=== PATIENT | female | born 1975 | race Caucasian/White ===

== ENCOUNTER 2022-09-03 08:24 | Outpatient (CLI) | payer OTHER, SELFPAY | END 2022-09-03 08:25 | disposition home or self-care (01) | PROVIDERS: PCP Family Medicine; Visit Provider Nurse Practitioner Family | DX: Z00.00 Encounter for general adult medical examination without abnormal findings (principal); I10 Essential (primary) hypertension; F41.1 Generalized anxiety disorder; Z13.6 Encounter for screening for cardiovascular disorders | CPT/HCPCS: 80053; 80061; 84443 ==

== ENCOUNTER 2022-09-17 16:05 | Outpatient (CLI) | payer OTHER, SELFPAY ==
--- NOTE | 2022-09-17 16:15 | CRLHL7_ITS ---
For Patients: As a result of the Century Cures Act, medical imaging exams and procedure reports are released immediately into your electronic medical record. You may view this report before your referring provider. If you have questions, please contact your health care provider. BILATERAL SCREENING MAMMOGRAM WITH COMPUTER-AIDED DETECTION AND TOMOSYNTHESIS TECHNIQUE: CC and MLO views were obtained. These mammographic images have been obtained using full-field digital technique. These mammographic images were interpreted with the benefit of computer-aided detection. Breast tomosynthesis was used in this interpretation. COMPARISON FILM: 07/26/21, 07/18/20, 04/13/19. FINDINGS: The breasts are heterogeneously dense, which may obscure small masses. IMPRESSION: There is no radiographic evidence for malignancy. ASSESSMENT: BI-RADS Category 1: Negative RECOMMENDATION: Routine screening mammogram in 1 year. A lay language report of this examination will be provided to the patient. WILLIS MAGAÑA M.D. Diagnostic Radiologist [email or web address] Transcribed: 09/18/2022, 2:[address]/Dictated by: Willis Magaña MD @ 09/18/2022 10:01:00 AM (Electronically Signed)
== END 2022-09-17 16:06 | disposition home or self-care (01) ==
LOC: MAMMO 16:06
PROVIDERS: PCP Family Medicine; Visit Provider Nurse Practitioner Family
DX: Z12.31 Encounter for screening mammogram for malignant neoplasm of breast (principal); R92.2 Inconclusive mammogram
CPT/HCPCS: 77063; 77067

== ENCOUNTER 2023-06-30 10:15 | Emergency (ER) | payer BC, SELFPAY ==
[2023-06-30 10:17] VITALS: BP 174/84; PULSE 122; RESP 16; TEMP 36.8; O2SAT 100; BMI 24.1
--- NOTE | 2023-06-30 10:35 | XR_ITS ---
Patient: JEREMY BHAGAT Facility:?[facility] Patient ID:?[id number] Site Patient ID:?[id number]. Site :?[id number] Study:?XRay-Chest 2 VIEW-06/30/2023 11:24:49 AM Ordering Physician:?DR. BREWER Final Report: INDICATION: Left upper chest pain. TECHNIQUE: Chest 2 views. COMPARISON: None. FINDINGS: Cardiovascular and mediastinum: Heart size and vasculature are normal in caliber and appearance. Lungs and pleural spaces: Lungs are clear. No sign of infiltrate or mass. No sign of pleural effusion. No pneumothorax. Bones and soft tissues: No significant findings. IMPRESSION: No acute or significant findings. Dictated by Rudy Dey MD @ 06/30/2023 11:39:24 AM Signed by:?Rudy Dey MD @06/30/2023 11:39:24 AM (Electronic Signature)
--- NOTE | 2023-06-30 10:36 | ED_ITS ---
HPI - Chest Pain General Date Seen: 06/30/23 Chief Complaint: Chest Pain Stated Complaint: chest pain Time Seen by Provider: 06/30/23 10:17 Source: patient Mode of arrival: ambulatory Limitations: no limitations History of Present Illness HPI narrative: Patient is a 47-year-old female presenting for left upper chest pain. Symptoms have been going on for the past 4 days. States pain is worse with deep breaths or movement of her left arm. Does not remember any recent heavy lifting or exercising because of cause this pain. No history of injuries to this area. States the pain wraps around her chest to her back. Had similar symptoms several years ago lower in her chest after she gave but they went away with steroids. No history of heart disease. No history of blood clots. Has been taking ibuprofen for pain which has been improving the symptoms. Does note her left upper chest is tender when she presses on it. Denies fevers, chills, headache, vision changes, shortness of breath, weakness, numbness, abdominal pain. No other concerns at this time Related Data Home Medications Medication Instructions Recorded Confirmed cetirizine 10 mg tablet 10 mg PO QDAY PRN 09/03/22 06/30/23 ibuprofen 200 mg tablet 600 mg PO QHS PRN 09/03/22 06/30/23 magnesium citrate 100 mg capsule 400 mg PO QDAY 09/03/22 06/30/23 multivitamin 1 tab PO QDAY 09/03/22 06/30/23 Previous Rx's Medication Instructions Recorded buspirone 10 mg tablet 10 mg PO BID #180 tabs 09/03/22 lorazepam 0.5 mg tablet (Ativan) 0.5 mg PO QHS PRN anxiety #30 tabs 09/03/22 Allergies Allergy/AdvReac Type Severity Reaction Status Date / Time No Known Drug Allergies Allergy Verified 06/30/23 10:23 Review of Systems Status of ROS Reports: 10 or more systems reviewed and unremarkable except as noted in History and below [facility] Medical History Perioral dermatitis ?L71.0 - Perioral dermatitis (ICD-10) 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) Surgical History Status post arthroscopy of right knee ?Z98.890 - Other specified postprocedural states (ICD-10) History of exploratory laparotomy ?Z98.890 - Other specified postprocedural states (ICD-10) Social History Smoking Status: Never smoker Do you use any of these nicotine containing products: None Second hand tobacco smoke exposure: No How often do you have a drink containing alcohol: never How often do you have six or more drinks on one occasion: Never AUDIT-C Alcohol total score: 0 Non-prescribed substance use: denies use Little interest or pleasure in doing things: several days Feeling down, depressed, or hopeless: several days service: No Exam Narrative Exam Narrative: Const: Well-nourished, Well-developed, in mild distress Eyes: PERRL, no conjunctival injection, and symmetrical lids HENT: Atraumatic external nose and ears. Moist mucous membranes. Neck: Symmetric, trachea midline, No thyromegaly. CVS: RRR, No murmurs or gallops. Peripheral pulses 2+ and equal in all extremities RESP: Unlabored respiratory effort. Clear to auscultation bilaterally. GI: Nontender/Nondistended, No rebound or guarding. MSK:Extremities w/o deformity, Normal Active ROM, tenderness palpation left upper chest Skin: Warm, Dry. No rashes or lesions. Neuro: Normal Muscle tone, No focal neurological deficits. Psych: Awake, Alert, & Oriented x3. Appropriate mood and affect. Const Vital Signs, click to edit/add: Vital Signs - 24 hr 06/30/23 10:17 Temperature 98.3 F Pulse Rate [Pulse Oximeter] 122 H Respiratory Rate 16 Blood Pressure [Right Upper Arm] 174/84 H Pulse Oximetry 100 Oxygen Delivery Method Room Air Course Vital Signs Vital signs: Initial Vital Signs Temperature 98.3 F 06/30/23 10:17 Temperature Source Temporal Artery Scan 06/30/23 10:17 Pulse Rate 122 H 06/30/23 10:17 Respiratory Rate 16 06/30/23 10:17 Blood Pressure 174/84 H 06/30/23 10:17 Blood Pressure Mean 114 H 06/30/23 10:17 Blood Pressure Position Sitting 06/30/23 10:17 Pulse Oximetry 100 06/30/23 10:17 Oxygen Delivery Method Room Air 06/30/23 10:17 Vital Signs Temperature 98.3 F 06/30/23 10:17 Pulse Rate 122 H 06/30/23 10:17 Respiratory Rate 16 06/30/23 10:17 Blood Pressure 174/84 H 06/30/23 10:17 Pulse Oximetry 100 06/30/23 10:17 Oxygen Delivery Method Room Air 06/30/23 10:17 Temperature 98.3 F 06/30/23 10:17 Pulse Rate 122 H 06/30/23 10:17 Respiratory Rate 16 06/30/23 10:17 Blood Pressure 174/84 H 06/30/23 10:17 Pulse Oximetry 100 06/30/23 10:17 Oxygen Delivery Method Room Air 06/30/23 10:17 Medications Administered Medications: Discontinued Medications Generic Name Dose Route Start Last Admin Trade Name Freq PRN Reason Stop Dose Admin Ketorolac Tromethamine 15 mg 06/30/23 10:34 06/30/23 11:00 Ketorolac 15 Mg/Ml Inj IVP 06/30/23 10:35 15 mg ONCE ONE Administration MDM - Chest Pain MDM Narrative Medical decision making narrative: Patient is a 47-year-old female presenting for chest pain. Pain is in the left upper chest it is reproducible with palpation. Seems most likely to be musculoskeletal in nature but she is tachycardic currently and cannot be perked out. Since she is having pain with deep breaths I will order a D-dimer to rule out a PE. Will also order chest x-ray for signs of pneumonia and pneumothorax. EKG and troponins look for signs of ACS. Also ordered CBC and BMP. Toradol given for pain. Patient's pain improved significantly with the Toradol. Chest x-ray reviewed by myself and the radiologist shows no concerning findings. Lab work shows no concerning abnormalities. Troponin within normal limits. EKG shows no concerning findings. Considering this pain has been gone for several days I not believe is necessary to repeat the troponin. She is otherwise doing well and can be discharged home. She is agreeable to this plan. Lab Data Labs: Lab Results 06/30/23 Range/Units 11:02 WBC 7.17 (4.50-11.00) K/uL RBC 3.98 L (4.00-5.20) m/uL Hgb 13.0 (12.0-16.0) gm/dL Hct 38.7 (33.0-51.0) % MCV 97 (80-100) fL MCH 33 (26-34) pg MCHC 34 (32-36) gm/dL RDW Coeff of Vishal 12.1 (11.5-15.5) % Plt Count 227 (140-440) K/uL Neut % (Auto) 67.9 (42.0-72.0) % Lymph % (Auto) 25.0 (20-44) % [place] % (Auto) 5.6 (0.0-11.0) % Eos % (Auto) 1.0 (0.0-7.0) % Baso % (Auto) 0.4 (0.0-3.0) % Neut # (Auto) 4.87 (1.7-7.0) K/uL Lymph # (Auto) 1.79 (0.90-2.90) K/uL [place] # (Auto) 0.40 (0.00-0.90) K/UL Eos # (Auto) 0.07 (0.00-0.50) K/uL Baso # (Auto) 0.03 (0.00-0.30) K/uL Abs Immat Gran (auto) 0.01 (0.00-0.30) K/uL Imm/Tot Granulo (auto) 0.1 % D-Dimer Quant (PE/DVT) < 0.27 (0.00-0.50) ug/ml Sodium 134 L (135-149) mmol/L Potassium 3.6 (3.6-5.1) mmol/L Chloride 103 (96-114) mmol/L Carbon Dioxide 22 (20-32) mmol/L Anion Gap 9 (7-15) mEq/L BUN 18 (5-24) mg/dL Creatinine 0.5 (0.5-1.5) mg/dL Estimated Creat Clear 127.85 Estimated GFR 118 ml/min Glucose 171 H (60-115) mg/dL Calcium 9.3 (8.4-10.6) mg/dL Troponin I < 0.01 L (0.01-0.04) ng/mL SARS-CoV-2 (PCR) Negative SARS-CoV-2 (Negative) Influenza Type A (PCR) Negative PCR FLU A (Negative) Influenza Type B (PCR) Negative PCR FLU B (Negative) Imaging Data Chest x-ray: Radiologist's impression: No acute or significant findings. Dictated by Rudy Dey MD @ 06/30/2023 11:39:24 AM ECG Data Attestation: I personally reviewed and interpreted this ECG as follows: Prior ECG tracings: not available for review Interpretation: Normal sinus rhythm with a rate of 81 beats per minute, normal intervals, normal axis, no ST or T-wave abnormalities Discharge Plan Discharge Clinical Impression: Anterior chest wall pain Patient Disposition: Home, Self-Care Condition: Improved Instructions: Chest Wall Pain (ED) Additional Instructions: Your symptoms appear to be some from musculoskeletal pain of the chest. Take Tylenol and ibuprofen for pain. Pain should improve the next week. Return for new worsening symptoms. Prescriptions: No Action ibuprofen 200 mg tablet 600 mg PO QHS PRN multivitamin Tablet 1 tab PO QDAY magnesium citrate 100 mg capsule 400 mg PO QDAY cetirizine 10 mg tablet 10 mg PO QDAY PRN buspirone 10 mg tablet 10 mg PO BID Qty: 180 3RF lorazepam [Ativan] 0.5 mg tablet 0.5 mg PO QHS PRN (Reason: anxiety) Qty: 30 0RF Follow Up/Referrals: Todd Apple MD [Primary Care Provider] - Stand Alone Forms: [facility] Info Instructions
[2023-06-30] MEDS: KETOROLAC 15 MG/ML inj IVP (11:00)
[2023-06-30 11:16] LABS: Basophils Absolute Auto 0.03 K/uL (0.00-0.30); Basophils Percent Auto 0.4 % (0.0-3.0); Eosinophils Absolute Auto 0.07 K/uL (0.00-0.50); Hematocrit 38.7 % (33.0-51.0); Immature Granulocytes Abs Auto 0.01 K/uL (0.00-0.30); Immature Granulocytes Pct Auto 0.1 %; Lymphocytes Absolute Auto 1.79 K/uL (0.90-2.90); Mean Corpuscular HGB Conc 34 gm/dL (32-36); Mean Corpuscular Hemoglobin 33 pg (26-34); Mean Corpuscular Volume 97 fL (80-100); Monocytes Percent Auto 5.6 % (0.0-11.0); Neutrophils Absolute Auto 4.87 K/uL (1.7-7.0); Neutrophils Percent Auto 67.9 % (42.0-72.0); Platelet Count* 227 K/uL (140-440); RDW Coefficient of Variation % 12.1 % (11.5-15.5); Red Blood Count 3.98 m/uL (4.00-5.20); White Blood Count* 7.17 K/uL (4.50-11.00)
[2023-06-30 11:22] LABS: Chloride* 103 mmol/L (96-114)
[2023-06-30 11:23] LABS: Potassium* 3.6 mmol/L (3.6-5.1); Sodium* 134 mmol/L (135-149)
[2023-06-30 11:25] LABS: Creatinine* 0.5 mg/dL (0.5-1.5); Est. Creatinine Clearance* 127.85; Estimated Glomerular Filt Rate 118 ml/min
[2023-06-30 11:26] LABS: Anion Gap 9 mEq/L (7-15); Blood Urea Nitrogen* 18 mg/dL (5-24); Calcium* 9.3 mg/dL (8.4-10.6); Carbon Dioxide* 22 mmol/L (20-32); Glucose* 171 mg/dL (60-115)
[2023-06-30 11:34] LABS: Slide Review Reflex No
[2023-06-30 11:38] LABS: Troponin I* < 0.01 ng/mL (0.01-0.04)
[2023-06-30 11:46] LABS: PCR FLU A Negative PCR FLU A (Negative); PCR FLU B Negative PCR FLU B (Negative); SARS PCR* Negative SARS-CoV-2 (Negative)
[2023-06-30 12:36] LABS: D Dimer Quantitative* < 0.27 ug/ml (0.00-0.50)
== END 2023-06-30 12:52 | disposition home or self-care (01) ==
PROVIDERS: Emergency Provider Student in an Organized Health Care Education/Training Program; PCP Family Medicine
DX: R07.89 Other chest pain (principal)
CPT/HCPCS: 36415; 71046; 80048; 84484; 85025; 85379; 87631; 93005; 96374; 99283; 99284; 99285; J1885

== ENCOUNTER 2023-10-30 10:54 | Outpatient (CLI) | payer BC, SELFPAY | END 2023-10-30 10:55 | disposition home or self-care (01) | PROVIDERS: PCP Family Medicine; Visit Provider Nurse Practitioner Family | DX: E78.5 Hyperlipidemia, unspecified (principal); I10 Essential (primary) hypertension | CPT/HCPCS: 80053; 80061 ==

== ENCOUNTER 2023-11-21 12:42 | Outpatient (CLI) | payer BC, SELFPAY ==
--- NOTE | 2023-11-21 13:00 | CRLHL7_ITS ---
For Patients: As a result of the Century Cures Act, medical imaging exams and procedure reports are released immediately into your electronic medical record. You may view this report before your referring provider. If you have questions, please contact your health care provider. BILATERAL SCREENING MAMMOGRAM WITH COMPUTER-AIDED DETECTION AND TOMOSYNTHESIS TECHNIQUE: CC and MLO views were obtained. These mammographic images have been obtained using full-field digital technique. These mammographic images were interpreted with the benefit of computer-aided detection. Breast Tomosynthesis was used in this interpretation. COMPARISON FILM: 09/17/22, 07/26/21, 07/18/20. FINDINGS: There are scattered areas of fibroglandular density IMPRESSION: There is no radiographic evidence for malignancy. ASSESSMENT: BI-RADS Category 1: Negative RECOMMENDATION: Routine screening mammogram in 1 year. A lay language report of this examination will be provided to the patient. Willis West M.D. Diagnostic Radiologist [email or web address] DEBBIE/Dictated by: Willis West MD @ 11/21/2023 2:14:00 PM (Electronically Signed)
== END 2023-11-21 12:43 | disposition home or self-care (01) ==
PROVIDERS: PCP Family Medicine; Visit Provider Nurse Practitioner Family
DX: Z12.31 Encounter for screening mammogram for malignant neoplasm of breast (principal)
CPT/HCPCS: 77063; 77067

== ENCOUNTER 2024-12-21 16:15 | Outpatient (CLI) | payer BC, SELFPAY ==
--- NOTE | 2024-12-21 16:20 | CRLHL7_ITS ---
For Patients: As a result of the Century Cures Act, medical imaging exams and procedure reports are released immediately into your electronic medical record. You may view this report before your referring provider. If you have questions, please contact your health care provider. INDICATION: BILATERAL SCREENING MAMMOGRAM, ASYMPTOMATIC 49 Y/O FEMALE COMPARISON: 2023, 09/17/2022, 07/26/2021 TECHNIQUE: Digital mammogram in CC and MLO projections including computer-aided detection (CAD) and tomosynthesis. BREAST COMPOSITION: The breasts are heterogeneously dense, which may obscure small masses. FINDINGS: No suspicious findings. ASSESSMENT: BI-RADS 1 Negative RECOMMENDATION: Annual screening mammogram. A lay language report of this examination will be provided to the patient. Dictated by: Willis West MD @ 12/22/2024 10:26:37 (Electronically Signed)
== END 2024-12-21 16:16 | disposition home or self-care (01) ==
LOC: MAMMO 16:17
PROVIDERS: PCP Family Medicine; Visit Provider Nurse Practitioner Family
DX: Z12.31 Encounter for screening mammogram for malignant neoplasm of breast (principal); R92.333 Mammographic heterogeneous density, bilateral breasts
CPT/HCPCS: 77063; 77067

== ENCOUNTER 2025-01-13 09:49 | Outpatient (CLI) | payer BC, SELFPAY | END 2025-01-13 09:50 | disposition home or self-care (01) | LOC: NFLDREF 01-15 18:14 | PROVIDERS: PCP Family Medicine; Referring Provider Family Medicine; Visit Provider Nurse Practitioner Family | DX: I10 Essential (primary) hypertension (principal); Z13.6 Encounter for screening for cardiovascular disorders | CPT/HCPCS: 80053; 80061 ==